=== PATIENT | male | born 1975 | race African-American/Black ===

== ENCOUNTER 2017-01-22 00:55 | Emergency (ER) | payer OTHER ==
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
[2017-01-22] MEDS ORDERED: DIPHTH,PERTUSS(ACELL),TET 0.5 ML DISP.SYRIN IM ONE (01:01)
[2017-01-22 01:02] VITALS: BP 124/90; PULSE 89; TEMP 98.8; BMI 40.1
== END 2017-01-22 01:31 | disposition home or self-care (01) ==
LOC: FER 00:55
PROC: 3E0234Z Introduction of Serum, Toxoid and Vaccine into Muscle, Percutaneous Approach (ICD-10-PCS; principal; 2017-01-22)
DX: S61.411A Laceration without foreign body of right hand, initial encounter (principal); S60.221A Contusion of right hand, initial encounter; W22.8XXA Striking against or struck by other objects, initial encounter; Y93.89 Activity, other specified; Y92.159 Unspecified place in reform school as the place of occurrence of the external cause; Y99.0 Civilian activity done for income or pay
CPT/HCPCS: 73130-TC-RT; 90715; 99281-25

== ENCOUNTER 2017-06-30 02:27 | Emergency (ER) | payer OTHER ==
[2017-06-30 02:43] VITALS: BP 145/74; PULSE 86; TEMP 98.9; BMI 41.3
[2017-06-30] MEDS ORDERED: AMOX TR/POT CLAV 875MG/125MG TABLETS (FP) PO ONE (02:53)
[2017-06-30] MEDS ORDERED: IBUPROFEN 600 MG TABLET (FP) PO ONE ×2 (02:54→02:59)
--- NOTE | 2017-06-30 02:58 | PDOC ---
History of Present Illness - General Chief Complaint: Abscess Boil Stated Complaint: CYST/SWELLING ON BACK Time Seen by Provider: 06/30/17 02:41 - History of Present Illness Initial Comments: This otherwise healthy 42-year-old man presents with several day history of progressive mild swelling and discomfort at the base of his spine. Patient denies fever/chills or drainage from the area. The patient has a history of skin abscess in the area. The patient states that this occurred several years ago and the area was not lanced. He was given course of antibiotics and swelling/pain resolved after this. He has one previous episode of right axillary cyst removal followed by skin graft that occurred when he was 16 years old (in [place]). No history of MRSA or other resistant organism colonization or infection. Past History - Past Medical History Allergies/Adverse Reactions: Allergies Allergy/AdvReac Type Severity Reaction Status Date / Time No Known Allergies Allergy Verified 01/22/17 00:56 Home Medications: Ambulatory Orders Amox-Tr/K Cl [Augmentin - 875Mg Tablet] 1 tab PO BID #14 tablet 06/30/17 COPD: No Other medical history: "LOTS OF HISTORY" - Immunization History Immunization Up to Date: No - Suicide/Smoking/Psychosocial Hx Smoking History: Never smoked Have you smoked in the past 12 months: No Hx Alcohol Use: No Drug/Substance Use Hx: No Substance Use Type: None Review of Systems - Review of Systems Able to Perform ROS?: Yes Comments:: 12 point review of systems is negative except for what is noted in the history of present illness *Physical Exam - Vital Signs Last Vital Signs Temp Pulse Resp BP Pulse Ox 98.9 F 86 16 145/74 97 06/30/17 02:29 06/30/17 02:29 06/30/17 02:29 06/30/17 02:32 06/30/17 02:29 - Physical Exam Comments: GENERAL: Adult male, alert and oriented 3, in no acute distress ABDOMEN:.normal bowel sounds No guarding,tenderness or rebound.No masses No distention. EXTREMITIES: Normal range of motion, no edema. No clubbing or cyanosis. No erythema, or tenderness. NEUROLOGICAL: Cranial nerves II through XII grossly intact. Normal speech. No focal neurological deficits. MUSCULOSKELETAL: Back non-tender to palpation, no CVA tenderness SKIN: 4 cm x 2 cm slightly edematous, mildly indurated, minimally tender area midline base of spine Area is faintly erythematous and minimally warmer to touch than surrounding area No central punctum identified; no fluctuance palpated. No drainage evident Medical Decision Making - Medical Decision Making This 42-year-old man presents with a several day history of mildly inflamed , minimally tender but moderately painful area at midline base of spine . Clinical presentation most consistent with early cellulitis; no palpable fluctuant abscess present. Patient has been instructed to apply warm soaks to the area as much as possible over the next several days. He has no risk factors for MRSA and will be given Augmentin 875/125 twice a day for a week. Follow-up appointment for reevaluation should be made with Dr. Vinh Myrick of the Gen. surgery staff. Referral information will be given to the patient *DC/Admit/Observation/Transfer Diagnosis at time of Disposition: Pilonidal abscess - Discharge Dispostion Disposition: HOME Condition at time of disposition: Stable - Prescriptions Prescriptions: Amox-Tr/K Cl [Augmentin - 875Mg Tablet] 1 tab PO BID #14 tablet - Referrals Referrals: Franco Silva [Primary Care Provider] - Vinh Myrick MD [Staff Physician] - - Patient Instructions Printed Discharge Instructions: Pilonidal Cyst Additional Instructions: Frequent warm applications to area of pain Augmentin 875/125 twice a day for one week -take with food Ibuprofen/acetaminophen as needed for pain Follow-up with general surgeon (Dr. Myrick) within 5 days[call office on Sunday, 07/02] Return to ER if you have severe pain/fever - Post Discharge Activity
[2017-06-30] MEDS ORDERED: AMOX TR/POT CLAV 875MG/125MG TABLETS (FP) ONE (02:59)
== END 2017-06-30 03:03 | disposition home or self-care (01) ==
LOC: FER 02:27
DX: L02.91 Cutaneous abscess, unspecified (principal)
CPT/HCPCS: 99282-25

== ENCOUNTER 2017-08-23 21:25 | Emergency (ER) | payer OTHER ==
[2017-08-23 21:36] VITALS: BP 144/98; PULSE 96; TEMP 98.2; BMI 42.5
--- NOTE | 2017-08-23 21:37 | PDOC ---
History of Present Illness - General History Source: Patient Exam Limitations: No Limitations - History of Present Illness Initial Comments: 08/23/17 22:04 The patient is a 42 year old male who presents to the emergency department complaining of a rash on the upper chest and shoulder beginning 2 days ago. The patient reports using a new soap from his job. He reports the rash originated in the middle of his chest, but radiated to both shoulders yesterday. The patient describes having an irritated feeling from the rash. The patient denies any itchiness, but endorses a mild burning feeling. The patient reports 3 episodes of diarrhea since Sunday. The patient denies hematochezia. The patient denies chest pain, shortness of breath, headache, and dizziness. Denies fevers, chills, nausea, vomiting, and constipation. Denies recent travel. PAST MEDICAL HISTORY: Hidradenitis PAST SURGICAL HISTORY: Testicular torsion FAMILY HISTORY: no pertinent history SOCIAL HISTORY: Pt lives with family and is employed. MEDICATIONS: reviewed ALLERGIES: As per nursing notes General: No fevers or chills, no weakness, no weight loss HEENT: No change in vision. No sore throat,. No ear pain CardioVascular: No chest pain or shortness of breath Respiratory:No cough, or wheezing. Gastrointestinal: no nausea, vomiting, diarrhea or constipation, No rectal bleeding Genitourinary: No dysuria, hematuria, or frequency Musculoskeletal: No joint or muscle pain or swelling Neurologic: No headache, vertigo, dizziness or loss of consciousness Psychiatric: nor depression Skin: +Rashes. No easy bruising Endocrine: no increased thirst or abnormal weight change Allergic: no skin or latex allergy All other systems reviewed and normal GENERAL: The patient is awake, alert, and fully oriented, in no acute distress. HEAD: Normal with no signs of trauma. EYES: Pupils equal, round and reactive to light, extraocular movements intact, sclera anicteric, conjunctiva clear. EXTREMITIES: Normal range of motion, no edema. NEUROLOGICAL: Normal speech, normal gait. PSYCH: Normal mood, normal affect. SKIN: +Multiple papules of upper chest and anterior shoulders. +Papules have waxy pearlescent center. +No increase in warmth, surrounding Erythema. +No tenderness or purulent discharge. Warm, Dry, normal turgor, no rashes or lesions noted. <Boogie Geiger - Last Filed: 08/23/17 22:04> - General History Source: Patient Exam Limitations: No Limitations - History of Present Illness Initial Comments: A portion of this note was documented by scribe services under my direction. I have reviewed the details of the note, within reason, and agree with the documentation. The case summary and management plan written by me. Assessment and plan: This is a 42-year-old male who comes in with a rash across his upper chest. Rashes papular nature with some of the papules having a waxy pearlescent type center. Rashes most consistent with molluscum contagiosum. Patient was reassured that is most likely that however he was also told to follow-up with a national sales. Patient was discharged home. 08/23/17 22:33 <Dimitrios Herrera I - Last Filed: 08/23/17 22:34> - General Chief Complaint: Rash Stated Complaint: RASH Time Seen by Provider: 08/23/17 21:37 Past History <Boogie Geiger - Last Filed: 08/23/17 22:04> - Past Medical History COPD: No - Immunization History Immunization Up to Date: No - Suicide/Smoking/Psychosocial Hx Smoking History: Never smoked Have you smoked in the past 12 months: No Hx Alcohol Use: No Drug/Substance Use Hx: No Substance Use Type: None <Dimitrios Herrera I - Last Filed: 08/23/17 22:34> - Past Medical History Allergies/Adverse Reactions: Allergies Allergy/AdvReac Type Severity Reaction Status Date / Time No Known Allergies Allergy Verified 01/22/17 00:56 Home Medications: Ambulatory Orders NK [No Known Home Medication] 08/23/17 *Physical Exam - Vital Signs Last Vital Signs Temp Pulse Resp BP Pulse Ox 98.2 F 96 H 16 144/98 96 08/23/17 21:31 08/23/17 21:31 08/23/17 21:31 08/23/17 21:31 08/23/17 21:31 <Boogie Geiger - Last Filed: 08/23/17 22:04> - Vital Signs Last Vital Signs Temp Pulse Resp BP Pulse Ox 98.2 F 96 H 16 144/98 96 08/23/17 21:31 08/23/17 21:31 08/23/17 21:31 08/23/17 21:31 08/23/17 21:31 <Dimitrios Herrera I - Last Filed: 08/23/17 22:34> *DC/Admit/Observation/Transfer - Attestations Scribe Attestion: 08/23/17 22:05 Documentation prepared by Boogie Geiger, acting as medical records analyst for Dimitrios Herrera MD. <Boogie Geiger - Last Filed: 08/23/17 22:04> - Discharge Dispostion Admit: No <Dimitrios Herrera I - Last Filed: 08/23/17 22:34> Diagnosis at time of Disposition: Molluscum contagiosum - Discharge Dispostion Disposition: HOME Condition at time of disposition: Good - Referrals Referrals: Franco Silva [Primary Care Provider] - - Patient Instructions Additional Instructions: Avoid skin to skin contact with other people as it can be transmitted by skin to skin contact. It is a virus and will run its course and may last for several months though. Return to the emergency department immediately with ANY new, persistent or worsening symptoms. Continue any medications as previously prescribed by your physician. You should follow up with your primary doctor as soon as possible regarding today's emergency department visit. . Please make sure your doctor reviews the results of your emergency evaluation. Thank you for coming to the Emergency Department today for your care. It was a pleasure to see you today. Please note that your evaluation is INCOMPLETE until you follow-up with your doctor. - Post Discharge Activity
== END 2017-08-23 22:00 | disposition home or self-care (01) ==
LOC: FER 21:25
DX: B08.1 Molluscum contagiosum (principal)
CPT/HCPCS: 99281-25

== ENCOUNTER 2018-05-05 21:58 | Emergency (ER) | payer SELFPAY ==
[2018-05-05 22:20] VITALS: BP 145/97; PULSE 90; TEMP 98.1; BMI 43.8
[2018-05-05 22:59] LABS: BASO % 1.4 % (0-2.0); EOS % 2.1 % (0-4.5); HEMATOCRIT 45.7 % (35.4-49); HEMOGLOBIN 14.6 GM/dl (11.7-16.9); LYMPH % 46.1 % (8-40); MCH 27.8 pg (25.7-33.7); MCHC 31.9 g/dl (32.0-35.9); MEAN CELL VOLUME 87.2 fl (80-96); MEAN PLT VOLUME 8.2 fl (7.5-11.1); MONO % 8.5 % (3.8-10.2); NEUT % 41.9 % (42.8-82.8); PLATELET COUNT 282 K/MM3 (134-434); RBC 5.24 M/mm3 (4.00-5.60); RDW 14.4 % (11.9-15.9); WHITE BLOOD COUNT 4.8 K/mm3 (4.0-10.8)
--- NOTE | 2018-05-05 23:00 | PDOC ---
History of Present Illness - General Chief Complaint: Chest Pain Stated Complaint: CHEST PAIN Time Seen by Provider: 05/05/18 21:59 History Source: Patient Exam Limitations: No Limitations - History of Present Illness Initial Comments: 05/05/18 23:04 chest pain since early today. Started as a tingle in the left hand and then pain in the left shoulder. Pt sammy obese and he wants to make sure it's not cardiac, though nobody in his family has a hx of [place] or DM. Pt has no hx of HTN, DM, High cholesterol. Timing/Duration: 24 hours Severity: mild Associated Symptoms: reports: denies symptoms Past History - Travel Traveled outside of the country in the last 30 days: No Close contact w/someone who was outside of country & ill: No - Past Medical History Allergies/Adverse Reactions: Allergies Allergy/AdvReac Type Severity Reaction Status Date / Time No Known Allergies Allergy Verified 01/02/18 18:45 Home Medications: Ambulatory Orders NK [No Known Home Medication] 08/23/17 COPD: No DVT: No - Immunization History Immunization Up to Date: No - Suicide/Smoking/Psychosocial Hx Smoking History: Never smoked Have you smoked in the past 12 months: No Hx Alcohol Use: No Drug/Substance Use Hx: No Substance Use Type: None Review of Systems - Review of Systems Constitutional: No: Symptoms Reported, See HPI, Chills, Diaphoresis, Fever, Loss of Appetite, Malaise, Night Sweats, Weakness, Weight Stable, Unintentional Wgt. Loss, Unexplained wgt Loss, Other HEENTM: No: Symptoms Reported, See HPI, Eye Pain, Blurred Vision, Tearing, Recent change in vision, Double Vision, Cataracts, Ear Pain, Ocular Prothesis, Ear Discharge, Nose Pain, Nose Congestion, Tinnitus, Nose Bleeding, Hearing Loss , Throat Pain, Throat Swelling, Mouth Pain, Dental Problems, Difficulty Swallowing, Mouth Swelling, Other Respiratory: No: Symptoms reported, See HPI, Cough, Orthopnea, Shortness of Breath, SOB with Exertion, SOB at Rest, Stridor, Wheezing, Productive cough, Hemoptysis, Other Cardiac (ROS): No: Symptoms Reported, See HPI, Chest Pain, Edema, Irregular Heart Rate, Lightheadedness, Palpitations, Syncope, Chest Tightness, Other ABD/GI: No: Symptoms Reported, See HPI, Abdominal Distended, Abd. Pain w/ defecation, Blood Streaked Bowels, Constipated, Diarrhea, Difficulty Swallowing , Nausea, Poor Appetite, Poor Fluid Intake, Rectal Bleeding, Vomiting, Indigestion, Abdominal cramping, Tarry Stools, Other : No: Symptoms Reported, See HPI, Burning, Dysuria, Discharge, Frequency, Flank Pain, Hematuria, Incontinence, Pain, Urgency, Testicular Mass, Testicular Swelling, Lesions, Testicular Pain, Other Musculoskeletal: No: Symptoms Reported, See HPI, Back Pain, Gout, Joint Pain, Joint Swelling, Muscle Pain, Muscle Weakness, Neck Pain, Joint Stiffness, Other Integumentary: No: Symptoms Reported, See HPI, Bruising, Change in Color, Change in Hair/Nails, Dryness, Erythema, Flushing, Lesions, Lumps, Pallor, Pruritus, Rash, Sweating, Other Neurological: No: Symptoms reported, See HPI, Headache, Numbness, Paresthesia, Pre-Existing Deficit, Seizure, Tingling, Tremors, Weakness, Unsteady Gait, Ataxia, Dizziness, Other *Physical Exam - Vital Signs Last Vital Signs Temp Pulse Resp BP Pulse Ox 98.1 F 90 18 145/97 96 05/05/18 22:01 05/05/18 22:01 05/05/18 22:01 05/05/18 22:01 05/05/18 22:01 - Physical Exam General Appearance: Yes: Nourished, Appropriately Dressed, Obese. No: Apparent Distress HEENT: positive: EOMI, SHARYN, Normal ENT Inspection, Normal Voice, Symmetrical, TMs Normal, Pharynx Normal Neck: positive: Trachea midline, Supple Respiratory/Chest: positive: Lungs Clear, Normal Breath Sounds. negative: Chest Tender, Respiratory Distress, Accessory Muscle Use Cardiovascular: positive: Regular Rhythm, Regular Rate, S1, S2 Gastrointestinal/Abdominal: positive: Normal Bowel Sounds, Soft. negative: Tender Musculoskeletal: positive: Normal Inspection, CVA Tenderness. negative: CVA Tenderness (R), CVA Tenderness (L), Muscle Spasm, Vertebral Tenderness Extremity: positive: Normal Capillary Refill, Normal Inspection, Normal Range of Motion, Tender, Pelvis Stable Integumentary: positive: Normal Color, Dry, Warm Neurologic: positive: behavioral specialist II-XII NML intact, Fully Oriented, Alert, Normal Mood/ Affect, Normal Response, Motor Strength 5/5 Moderate Sedation - Procedure Monitoring Vital Signs: Procedure Monitoring Vital Signs Temperature 98.1 F 05/05/18 22:01 Pulse Rate 90 05/05/18 22:01 Respiratory Rate 18 05/05/18 22:01 Blood Pressure 145/97 05/05/18 22:01 O2 Sat by Pulse Oximetry (%) 96 05/05/18 22:01 Heart Score/ECG Review - ECG Intrepretation Rhythm: Regular Rhythm - [place]: Normal - ST and T Early Repolarization: No Non Specific ST-T Wave changes: No - ECG Impressions Normal ECG: Yes Non-specific ST Elevation: No Ischemic Changes: No Bradycardia: No (rate normal 84 bpm) ED Treatment Course - LABORATORY CBC & Chemistry Diagram: 05/05/18 22:40 05/05/18 22:40 - ADDITIONAL ORDERS Additional order review: Laboratory Results 05/05/18 22:40 Troponin I Cancelled - RADIOLOGY Radiology Studies Ordered: Category Date Time Status CHEST PA & LAT [RAD] Stat Radiology 05/05/18 21:59 Taken Medical Decision Making - Medical Decision Making 05/05/18 23:15 CBC is normal. CXR normal EKG NSR 05/05/18 23:24 Pt's CPK is elevated, but that is likely due to his body mabitus, and the fact that for the past 3 weeks he joined a gym ([employer]) and he has been exercising. I am waiting on CPK and CKMB and troponin *DC/Admit/Observation/Transfer Diagnosis at time of Disposition: Atypical chest pain - Discharge Dispostion Disposition: HOME Condition at time of disposition: Stable Decision to Admit order: No - Referrals Referrals: Franco Silva [Primary Care Provider] - - Patient Instructions Printed Discharge Instructions: Vegan Diet (Alternative Therapy), DI for Atypical Chest Pain - Post Discharge Activity
[2018-05-05 23:15] LABS: ALBUMIN 3.6 g/dl (3.5-5.0); ALK PHOS 63 U/L (32-92); ANION GAP 8 MMOL/L (8-16); BILIRUBIN,TOTAL 0.4 mg/dl (0.2-1.0); BLOOD UREA NITROGEN 22 mg/dl (7-18); CHLORIDE 107 mmol/L (98-107); CO2 21 mmol/L (22-28); CREATININE 1.1 mg/dl (0.6-1.3); GLUCOSE,RANDOM 115 mg/dl (74-106); POTASSIUM 3.9 mmol/L (3.5-5.1); SGOT/AST 38 U/L (10-42); SGPT/ALT 44 U/L (10-40); SODIUM 136 mmol/L (136-145); TOT PROT 7.5 g/dl (6.4-8.3)
--- NOTE | 2018-05-06 09:58 | EKG ---
Test Reason : Blood Pressure : / mmHG Vent. Rate : 084 BPM Atrial Rate : 084 BPM P-R Int : 186 ms QRS Dur : 090 ms QT Int : 338 ms P-R-T Axes : 047 -07 010 degrees QTc Int : 399 ms NORMAL SINUS RHYTHM MINIMAL VOLTAGE CRITERIA FOR LVH, MAY BE NORMAL VARIANT BORDERLINE ECG NO PREVIOUS ECGS AVAILABLE Confirmed by ARLETTE RENNER MD ([id number]) on 05/06/2018 9:57:38 AM Referred By: Confirmed By:ARLETTE RENNER MD
== END 2018-05-06 00:15 | disposition home or self-care (01) ==
LOC: FER 21:58
DX: R07.89 Other chest pain (principal); I25.2 Old myocardial infarction; E11.9 Type 2 diabetes mellitus without complications
CPT/HCPCS: 36415; 71046-TC-FY; 80053; 82550; 82553; 84484; 85025; 93005; 99281-25

== ENCOUNTER 2019-03-18 04:26 | Emergency (ER) | payer SELFPAY ==
[2019-03-18 04:35] VITALS: BP 151/102; PULSE 67; BMI 42.0
[2019-03-18] MEDS ORDERED: TETRACAINE 0.5% OPHTH SOLN 2 ML BOTTLE ONE (04:38)
[2019-03-18] MEDS ORDERED: FLUORESCEIN NA 1 EA STRIP ONE (04:38)
[2019-03-18] MEDS ORDERED: TOBRA 0.3%/DEXAMETH 0.1% OPHTHALMIC SUSP 2.5 ML BTL ONE (04:40)
--- NOTE | 2019-03-18 04:43 | PDOC ---
History of Present Illness - General Chief Complaint: Pain, Acute Stated Complaint: PAIN AND IRRITATION TO LEFT EYE Time Seen by Provider: 03/18/19 04:37 History Source: Patient Exam Limitations: No Limitations - History of Present Illness Initial Comments: 03/18/19 04:45 This is a 43-year-old male who comes in complaining of a sensation of irritation in his left eye since yesterday morning. Patient said there is been some discharge from the eye but no pus from the eye. Patient otherwise denies any trauma or injury. Patient denies having gotten anything in the eye. Allergies: as per nursing notes Past Medical History: none Social history: Lives with family. No smoking. No alcohol. No illicit drugs. Surgical history: None General: No fevers or chills, no weakness, no weight loss HEENT: No change in vision. No sore throat,. No ear pain CardioVascular: no chest discomfort. No shortness of breath Respiratory:No cough, or wheezing. Gastrointestinal: no nausea, vomiting, diarrhea or constipation, No rectal bleeding Genitourinary: No dysuria, hematuria, or frequency Musculoskeletal: No joint or muscle pain or swelling Neurologic: No headache, vertigo, dizziness or loss of consciousness Psychiatric: nor depression Skin: No rashes or easy bruising Endocrine: no increased thirst or abnormal weight change Allergic: no skin or latex allergy All other systems reviewed and normal GENERAL: The patient is awake, alert, and fully oriented, in no acute distress. HEAD: Normal with no signs of trauma. EYES: Pupils equal, round and reactive to light, extraocular movements intact, sclera anicteric, conjunctiva injected with some clear discharge from the eye. EXTREMITIES:atraumatic, Normal range of motion, no edema. NEUROLOGICAL: Normal speech, normal gait. PSYCH: Normal mood, normal affect. SKIN: Warm, Dry, normal turgor, no rashes or lesions noted. 03/18/19 04:47 Assessment and plan: This is a 43-year-old male with conjunctivitis. Patient started on TobraDex and discharged. Past History - Past Medical History Allergies/Adverse Reactions: Allergies Allergy/AdvReac Type Severity Reaction Status Date / Time No Known Allergies Allergy Verified 03/18/19 04:31 Home Medications: Ambulatory Orders NK [No Known Home Medication] 08/23/17 COPD: No DVT: No - Immunization History Td Vaccination: Yes Immunization Up to Date: No - Psycho Social/Smoking Cessation Hx Smoking History: Never smoked Have you smoked in the past 12 months: No Information on smoking cessation initiated: No Hx Alcohol Use: No Drug/Substance Use Hx: No Substance Use Type: None *Physical Exam - Vital Signs Last Vital Signs Temp Pulse Resp BP Pulse Ox 67 16 151/102 H 98 03/18/19 04:32 03/18/19 04:32 03/18/19 04:32 03/18/19 04:32 Discharge - Discharge Information Problems reviewed: Yes Clinical Impression/Diagnosis: Conjunctivitis Qualifiers: Conjunctivitis type: unspecified Laterality: left Qualified Code(s): H10.9 - Unspecified conjunctivitis Condition: Stable Disposition: HOME - Admission No - Follow up/Referral - Patient Discharge Instructions Additional Instructions: Put 1 drop of the eye ointment in your left eye every 4 hours while awake for the next 4 to 5 days. 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 Continue any medications as previously prescribed by your physician. You should follow up with your primary doctor as soon as possible regarding today's emergency department visit. . Please make sure your doctor reviews the results of your emergency evaluation. Thank you for coming to the Emergency Department today for your care. It was a pleasure to see you today. Please note that your evaluation is INCOMPLETE until you follow-up with your doctor. . - Post Discharge Activity
[2019-03-18] MEDS ORDERED: TOBRA 0.3%/DEXAMETH 0.1% OPHTHALMIC SUSP 2.5 ML BTL OS STA (04:46)
[2019-03-18] MEDS ORDERED: TOBRA 0.3%/DEXAMETH 0.1% OPHTHALMIC SUSP 2.5 ML BTL OU SCH (06:00)
== END 2019-03-18 04:50 | disposition home or self-care (01) ==
LOC: FER 04:26
DX: H10.9 Unspecified conjunctivitis (principal)
CPT/HCPCS: 99281-25

== ENCOUNTER 2020-02-22 02:15 | Emergency (ER) | payer OTHER ==
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
[2020-02-22 02:22] VITALS: BP 127/87; PULSE 87; TEMP 98.7; BMI 42.1
--- OUTSIDE RECORDS SUMMARY | 2020-02-22 02:30 | XMS ---
:1975 Author Organization [facility] Support Name Relationship Address Phone CHILD Unavailable [facility] [phone] [place] [address] ZAY PAL MOTHER [address] [place] [address] Re-disclosure Warning The records that you are about to access may contain information from federally- assisted alcohol or drug abuse programs. If such information is present, then the following federally mandated warning applies: This information has been disclosed to you from records protected by federal confidentiality rules (42 CFR part 2). The federal rules prohibit you from making any further disclosure of this information unless further disclosure is expressly permitted by the written consent of the person to whom it pertains or as otherwise permitted by 42 CFR part 2. A general authorization for the release of medical or other information is NOT sufficient for this purpose. The Federal rules restrict any use of the information to criminally investigate or prosecute any alcohol or drug abuse patient.The records that you are about to access may contain highly sensitive health information, the redisclosure of which is protected by Article 27-F of the [facility] Public Health law. If you continue you may haveaccess to information: Regarding HIV / AIDS; Provided by facilities licensed or operated by the [facility] Office of Mental Health; or Provided by the [facility] Office for People With Developmental Disabilities. If such information is present, then the following [facility] mandated warning applies: This information has been disclosed to you from confidential records which are protected by state law. State law prohibits you from making any further disclosure of this information without the specific written consent of the person to whom it pertains, or as otherwise permitted by law. Any unauthorized further disclosure in violation of state law may result in a fine or skilled nursing sentence or both. A general authorization for the release of medical or other information is NOT sufficient authorization for further disclosure. Insurance Providers Payer name Policy type Policy ID Covered Covered libertarian's Policy P dariana / Coverage libertarian ID relationship to [facility] [facility] orm[facility] type [place] SELF PAY SP INSURANCE PMA INSURANCE [id number] SP [id number] GROUP PMA INSURANCE [id number] SP [id number] GROUP Results ID Date Data Source [id number] 02/14/2020 08:47:00 AM EDT [facility] FASTING: UNKNOWNReceived: 02/06/2020 at 01:38:00 QTE: [facility], Moris Acosta Ricarad [place], [address]Zafar MD Received: 02/06/2020 at 01:38:00 QTE : [facility], [place], [address]Zafar MD Received: 02/06/2020 at 01:38:00 QTE : [facility], [address]Zafar MD Received: 02/06/2020 at 01:38:00 QTE : [facility], Moris Meridabraden Garcias [facility] [place], [address]Zafar MD Received: 02/06/2020 at 01:38:00 QTE : [facility], [place], [address]Zafar MD Received: 02/06/2020 at 01:38:00 QTE : [facility] Moris Acosta Ricarda [facility] [place], [address]Zafar MD Received: 02/06/2020 at 01:38:00 QTE : [facility] Moris MeridaKatey Martínezbor[place], [address]Zafar MD Received: 02/06/2020 at 01:38:00 AMD : [facility], [address], [place], [address], Juan Miguel Kebede M.D.,PhD Received: 02/06/2020 at 01:38:00 AMD : [facility], [address], [place], [address], Juan Miguel Kebede M.D.,PhD Received: 02/06/2020 at 01:38:00 QTE : [facility], [address], [place], [address], Zafar Sanchez MD Received: 02/06/2020 at 01:38:00 QTE : [facility], [address], [place], [address], Zafar Sanchez MD Received: 02/06/2020 at 01:38:00 QTE : [facility], [address], [place], [address], Zafar Sanchez MD Received: 02/06/2020 at 01:38:00 QTE : [facility], [address], [place], [address], Zafar Sanchez MD Name Value Range Interpretation Code Description Data Kayli rce(s) Supporting Document(s ) ID Date Data Source [id number] 02/14/2020 08:47:00 AM EDT [facility] FASTING: UNKNOWNReceived: 02/06/2020 at 01:38:00 QTE: [facility], Moris Hardingcolm Nikitae, [place], [address], Zafar Sanchez MD Received: 02/06/2020 at 01:38:00 QTE : [facility], [address], [place], [address], Zafar Sanchez MD Received: 02/06/2020 at 01:38:00 QTE : [facility], [address], [place], [address], Zafar Sanchez MD Received: 02/06/2020 at 01:38:00 QTE : [facility], [address], [place], [address], Zafar Sanchez MD Received: 02/06/2020 at 01:38:00 QTE : [facility], Moris Garcias, [place], [address], Zafar Sanchez MD Received: 02/06/2020 at 01:38:00 QTE : [facility], Moris Garcias, [place], [address], Zafar Sanchez MD Received: 02/06/2020 at 01:38:00 QTE : [facility], Moris Garcias, [place], [address], Zafar Sanchez MD Received: 02/06/2020 at 01:38:00 AMD : [facility], [address] [facility], [place], [place], , Juan Miguel Kebede M.D.,PhD Received: 02/06/2020 at 01:38:00 AMD : [facility], [address] [facility], [place], , Juan Miguel Kebede M.D.,PhD Received: 02/06/2020 at 01:38:00 QTE : [facility], Moris Garcias, [place], [address], Zafar Sanchez MD Received: 02/06/2020 at 01:38:00 QTE : [facility], [place], [address], Zafar Sanchez MD Received: 02/06/2020 at 01:38:00 QTE : [facility], [place], [address], Zafar Sanchez MD Received: 02/06/2020 at 01:38:00 QTE : [facility], [place], [address], Zafar Sanchez MD Name Value Range Interpretation Description Data Source(s ) Supporting Code Document(s ) Cholesterol 226 <200 Above high normal [facility] [Mass/volume] mg/dL Diagnostics in Serum or Plasma ID Date Data Source [id number] 02/14/2020 08:47:00 AM EDT [facility] FASTING: UNKNOWNReceived: 02/06/2020 at 01:38:00 QTE: [facility], Moris Garcias, [place], [address], Zafar Sanchez MD Received: 02/06/2020 at 01:38:00 QTE : [facility], Moris Garcias, [place], [address], Zafar Sanchez MD Received: 02/06/2020 at 01:38:00 QTE : [facility], Moris Garcias, [place], [address], Zafar Sanchez MD Received: 02/06/2020 at 01:38:00 QTE : [facility], Moris Garcias, [place], [address], Zafar Sanchez MD Received: 02/06/2020 at 01:38:00 QTE : [facility], Moris Garcias, [place], [address], Zafar Sanchez MD Received: 02/06/2020 at 01:38:00 QTE : [facility], Moris Garcias, [place], [address], Zafar Sanchez MD Received: 02/06/2020 at 01:38:00 QTE : [facility], Moris Garcias, [place], [address], Zafar Sanchez MD Received: 02/06/2020 at 01:38:00 AMD : [facility], [address], [place], [place], , Juan Miguel Kebede M.D.,PhD Received: 02/06/2020 at 01:38:00 AMD : [facility], [address], [place], [place], , Juan Miguel Kebede M.D.,PhD Received: 02/06/2020 at 01:38:00 QTE : [facility], Moris Meridabraden Garcias, [place], [address], Zafra Sanchez MD Received: 02/06/2020 at 01:38:00 QTE : [facility], Moris Acosta Ricarda, [place], [address], Zafar Sanchez MD Received: 02/06/2020 at 01:38:00 QTE : [facility], Moris Meridabraden Garcias, [place], [address], Zafar Sanchez MD Received: 02/06/2020 at 01:38:00 QTE : [facility], [place], [address], Zafar Sanchez MD Name Value Range Interpretation Description Data Sup porting Code Source(s) Document(s ) Cholesterol in 62 mg/dL > OR = Normal (applies [facility] HDL 40 to non-numeric Diagnostics [Mass/volume] results) in Serum or Plasma ID Date Data Source [id number] 02/14/2020 08:47:00 AM EDT [facility] FASTING: UNKNOWNReceived: 02/06/2020 at 01:38:00 QTE: [facility], [place], [address], Zafar Sanchez MD Received: 02/06/2020 at 01:38:00 QTE : [facility], [address], Zafar Sanchez MD Received: 02/06/2020 at 01:38:00 QTE : [facility], [place], [address], Zafar Sanchez MD Received: 02/06/2020 at 01:38:00 QTE : [facility], [address], Zafar Sanchez MD Received: 02/06/2020 at 01:38:00 QTE : [facility], [address], Zafar Sanchez MD Received: 02/06/2020 at 01:38:00 QTE : [facility], [place], [address], Zafar Sanchez MD Received: 02/06/2020 at 01:38:00 QTE : [facility], Moris Garcias, [place], [address], Zafar Sanchez MD Received: 02/06/2020 at 01:38:00 AMD : [facility], [address] [facility], [place], [place], , Juan Miguel Kebede M.D.,PhD Received: 02/06/2020 at 01:38:00 AMD : [facility], [address] [facility], [place], , Juan Miguel Kebede M.D.,PhD Received: 02/06/2020 at 01:38:00 QTE : [facility], [place], [address], Zafar Sanchez MD Received: 02/06/2020 at 01:38:00 QTE : [facility], [place], [address]Zafar MD Received: 02/06/2020 at 01:38:00 QTE : [facility], [place], [address], Zafar Sanchez MD Received: 02/06/2020 at 01:38:00 QTE : [facility], [address], Zafar Sanchez MD Name Value Range Interpretation Description Data Source(s ) Supporting Code Document(s ) Triglyceride 58 mg/dL <150 Normal (applies [facility] [Mass/volume] to non-numeric Diagnostics in Serum or results) Plasma ID Date Data Source [id number] 02/14/2020 08:47:00 AM EDT [facility] FASTING: UNKNOWNReceived: 02/06/2020 at 01:38:00 QTE: [facility], [address], [place], [address], Zafar Sanchez MD Received: 02/06/2020 at 01:38:00 QTE : [facility], [address], [place], [address], Zafar Sanchez MD Received: 02/06/2020 at 01:38:00 QTE : [facility], [address], [place], [address], Zafar Sanchez MD Received: 02/06/2020 at 01:38:00 QTE : [facility], [address], [place], [address], Zafar Sanchez MD Received: 02/06/2020 at 01:38:00 QTE : [facility], [address], [place], [address], Zafar Sanchez MD Received: 02/06/2020 at 01:38:00 QTE : [facility], [address], [place], [address], Zafar Sanchez MD Received: 02/06/2020 at 01:38:00 QTE : [facility], [address], [place], [address], Zafar Sanchez MD Received: 02/06/2020 at 01:38:00 AMD : [facility], [address] [facility] [address] , [place], [place], , Juan Miguel Kebede M.D.,PhD Received: 02/06/2020 at 01:38:00 AMD : [facility], [address] [facility] [address], [place], [place], , Juan Miguel Kebede M.D.,PhD Received: 02/06/2020 at 01:38:00 QTE : [facility], [address], [place], [address]Zafar MD Received: 02/06/2020 at 01:38:00 QTE : [facility] [place], [address]Zafar MD Received: 02/06/2020 at 01:38:00 QTE : [facility] [place], [address]Zafar MD Received: 02/06/2020 at 01:38:00 QTE : [facility] [place], [address]Zafar MD Name Value Range Interpretation Description Data Source(s ) Supporting Code Document(s ) Cholesterol in 149 Above high normal [facility] LDL mg/dL Diagnostics [Mass/volume] (calc) in Serum or Plasma by calculation Reference range: <100Desirable range <10 0 mg/dL for primary prevention;<70 mg/dL for patients with CHD or diabetic patientswi th > or = 2 CHD risk factors.LDL-C is now calculated using the Jay lation, which is a validated novel method providingbetter accuracy than the Friede christin equation in theestimation of LDL-C.Donny SS et al. KAVITA. 2013;310(19 ): 8415-0319(http://education.No Surprises SoftwareDiagnost [employer].com/faq/RNE975) ID Date Data Source [id number] 02/14/2020 08:47:00 AM EDT [facility] FASTING: UNKNOWNReceived: 02/06/2020 at 01:38:00 QTE: [facility] [place], [address]Zafar MD Received: 02/06/2020 at 01:38:00 QTE : [facility] [place], [address]Zafar MD Received: 02/06/2020 at 01:38:00 QTE : [facility] [place], [address]Zafar MD Received: 02/06/2020 at 01:38:00 QTE : [facility], [address], [place], [address], Zafar Sanchez MD Received: 02/06/2020 at 01:38:00 QTE : [facility], [address], [place], [address], Zafar Sanchez MD Received: 02/06/2020 at 01:38:00 QTE : [facility], [address], [place], [address], Zafar Sanchez MD Received: 02/06/2020 at 01:38:00 QTE : [facility], [address], [place], [address], Zafar Sanchez MD Received: 02/06/2020 at 01:38:00 AMD : [facility], [address], [place], [place], , Juan Miguel Kebede M.D.,PhD Received: 02/06/2020 at 01:38:00 AMD : [facility], [address], [place], [place], , Juan Miguel Kebede M.D.,PhD Received: 02/06/2020 at 01:38:00 QTE : [facility], [address], [place], [address], Zafar Sanchez MD Received: 02/06/2020 at 01:38:00 QTE : [facility], [address], [place], [address], Zafar Sanchez MD Received: 02/06/2020 at 01:38:00 QTE : [facility], [address], [place], [address], Zafar Sanchez MD Received: 02/06/2020 at 01:38:00 QTE : [facility], [address], [place], [address]Zafar MD Name Value Range Interpretation Description Data Source(s ) Supporting Code Document(s ) Cholestero 3.6 <5.0 Normal (applies to [facility] l.total/Ch (calc) non-numeric Diagnostics olesterol results) in HDL [Mass Ratio] in Serum or Plasma ID Date Data Source [id number] 02/14/2020 08:47:00 AM EDT [facility] FASTING: UNKNOWNReceived: 02/06/2020 at 01:38:00 QTE: [facility], [place], [address], Zafar Sancehz MD Received: 02/06/2020 at 01:38:00 QTE : [facility], [place], [address], Zafar Sanchez MD Received: 02/06/2020 at 01:38:00 QTE : [facility], [place], [address], Zafar Sanchez MD Received: 02/06/2020 at 01:38:00 QTE : [facility], [place], [address], Zafar Sanchez MD Received: 02/06/2020 at 01:38:00 QTE : [facility], [place], [address], Zafar Sanchez MD Received: 02/06/2020 at 01:38:00 QTE : [facility], Moris Garcias [place], [address]Zafar MD Received: 02/06/2020 at 01:38:00 QTE : [facility], [place], [address], Zafar Sanchez MD Received: 02/06/2020 at 01:38:00 AMD : [facility], [address], [place], [address], Juan Miguel Kebede M.D.,PhD Received: 02/06/2020 at 01:38:00 AMD : [facility], [address], [place], [address], Juan Miguel Kebede M.D.,PhD Received: 02/06/2020 at 01:38:00 QTE : [facility], [place], [address], Zafar Sanchez MD Received: 02/06/2020 at 01:38:00 QTE : [facility], [place], [address], Zafar Sanchez MD Received: 02/06/2020 at 01:38:00 QTE : [facility], [place], [address]Zafar MD Received: 02/06/2020 at 01:38:00 QTE : [facility], [place], [address], Zafar Sanchez MD Name Value Range Interpretation Description Data Source(s ) Supporting Code Document(s ) Cholesterol 164 <130 Above high normal [facility] non HDL mg/dL Diagnostics [Mass/volume] (calc) in Serum or Plasma For patients with diabetes plus 1 major ASCVD riskfactor, treating to a non-HDL-C goal of <100 mg/dL(LDL-C of <70 mg/dL) i s considered a therapeuticoption. ID Date Data Source [id number] 02/14/2020 08:47:00 AM EDT [facility] FASTING: UNKNOWNReceived: 02/06/2020 at 01:38:00 QTE: [facility], [place], [address]Zafar MD Received: 02/06/2020 at 01:38:00 QTE : [facility], [address]Zafar MD Received: 02/06/2020 at 01:38:00 QTE : [facility]ostics[facility] Vidal [place], [address], Zafar Sanchez MD Received: 02/06/2020 at 01:38:00 QTE : [facility], [address], [place], [address], Zafar Sanchez MD Received: 02/06/2020 at 01:38:00 QTE : [facility], [address], [place], [address], Zafar Sanchez MD Received: 02/06/2020 at 01:38:00 QTE : [facility], [address], [place], [address], Zafar Sanchez MD Received: 02/06/2020 at 01:38:00 QTE : [facility], Moris Garcias, [place], [address], Zafar Sanchez MD Received: 02/06/2020 at 01:38:00 AMD : [facility], [address] [facility], [place], [place], , Juan Miguel Kebede M.D.,PhD Received: 02/06/2020 at 01:38:00 AMD : [facility], [address] [facility], [place], [place], , Juan Miguel Kebede M.D.,PhD Received: 02/06/2020 at 01:38:00 QTE : [facility], [address]is Ac[address], [place], [address], Zafar Sanchez MD Received: 02/06/2020 at 01:38:00 QTE : [facility], [address] Nikit[address], [place], [address], Zafar Sanchez MD Received: 02/06/2020 at 01:38:00 QTE : [facility], [address], [place], [address], Zafar Sanchez MD Received: 02/06/2020 at 01:38:00 QTE : [facility], [facility] [address], [place], [address], Zafar Sanchez MD Name Value Range Interpretation Description Data Source(s ) Supporting Code Document(s ) Glucose 93 mg/dL 65-99 Normal (applies to [facility] [Mass/volum non-numeric Diagnostics e] in Serum results) or Plasma Fasting reference interval Urea nitrogen 13 mg/dL 7-25 Normal (applies [facility] [Mass/volume] in Serum to non-numeric Di agnostics or Plasma results) Creatinine 1.14 mg/dL 0.60-1.35 Normal (applies [facility] [Mass/volume] in Serum to non-numeric Di agnostics or Plasma results) Glomerular filtration 78 mL/min/1.73m2 > OR = 60 Normal (applies [facility] rate/1.73 sq to non-numeric Diagnostics M.predicted [Volume results) Rate/Area] in Serum, Plasma or Blood by Creatinine-based formula (MDRD) Glomerular filtration 91 mL/min/1.73m2 > OR = 60 Normal (applies [facility] rate/1.73 sq M to non-numeric Diagnostic s predicted among blacks results) [Volume Rate/Area] in Serum or Plasma by Creatinine-based formula (MDRD) Urea NOT APPLICABLE 6-22 [facility] nitrogen/Creatinine (calc) Diagnostic s [Mass Ratio] in Serum or Plasma Sodium [Moles/volume] 138 mmol/L 135-146 Normal (applies Q uest in Serum or Plasma to non-numeric Diagno stics results) Potassium 4.5 mmol/L 3.5-5.3 Normal (applies [facility] [Moles/volume] in to non-numeric Diagnos tics Serum or Plasma results) Chloride 106 mmol/L 98-110 Normal (applies [facility] [Moles/volume] in to non-numeric Diagnos tics Serum or Plasma results) Carbon dioxide, total 22 mmol/L 20-32 Normal (applies Qu est [Moles/volume] in to non-numeric Diagnos tics Serum or Plasma results) Calcium [Mass/volume] 9.5 mg/dL 8.6-10.3 Normal (applies Qu est in Serum or Plasma to non-numeric Diagno stics results) Protein [Mass/volume] 7.9 g/dL 6.1-8.1 Normal (applies Qu est in Serum or Plasma to non-numeric Diagno stics results) Albumin [Mass/volume] 4.2 g/dL 3.6-5.1 Normal (applies Qu est in Serum or Plasma to non-numeric Diagno stics results) Globulin [Mass/volume] 3.7 g/dL (calc) 1.9-3.7 Normal (applies [facility] in Serum by to non-numeric Diagnostics calculation results) Albumin/Globulin [Mass 1.1 (calc) 1.0-2.5 Normal (applies [facility] Ratio] in Serum or to non-numeric Diagno stics Plasma results) Bilirubin.total 0.5 mg/dL 0.2-1.2 Normal (applies [facility] [Mass/volume] in Serum to non-numeric Di agnostics or Plasma results) Alkaline phosphatase 69 U/L 36-130 Normal (applies Que st [Enzymatic to non-numeric Diagnostics activity/volume] in results) Serum or Plasma Aspartate 31 U/L 10-40 Normal (applies [facility] aminotransferase to non-numeric Diagnost ics [Enzymatic results) activity/volume] in Serum or Plasma Alanine 31 U/L 9-46 Normal (applies [facility] aminotransferase to non-numeric Diagnost ics [Enzymatic results) activity/volume] in Serum or Plasma ID Date Data Source [id number] 02/14/2020 08:47:00 AM EDT [facility] FASTING: UNKNOWNReceived: 02/06/2020 at 01:38:00 QTE: [place], [address], Zafar Sanchez MD Received: 02/06/2020 at 01:38:00 QTE : [place], [address]Zafar MD Received: 02/06/2020 at 01:38:00 QTE : [facility] [place], [address], Zafar Sanchez MD Received: 02/06/2020 at 01:38:00 QTE : [place], [address], Zafar Sanchez MD Received: 02/06/2020 at 01:38:00 QTE : [place], [address], Zafar Sanchez MD Received: 02/06/2020 at 01:38:00 QTE : [facility], [place], [address], Zafar Sanchez MD Received: 02/06/2020 at 01:38:00 QTE : [facility], [place], [address], Zafar Sanchez MD Received: 02/06/2020 at 01:38:00 AMD : [facility], [address] [facility], [place], [place], , Juan Miguel Kebede M.D.,PhD Received: 02/06/2020 at 01:38:00 AMD : [facility], [address] [facility], [place], [place], , Juan Miguel Kebede M.D.,PhD Received: 02/06/2020 at 01:38:00 QTE : [facility], [place], [address], Zafar Sanchez MD Received: 02/06/2020 at 01:38:00 QTE : [facility], [place], [address], Zafar Sanchez MD Received: 02/06/2020 at 01:38:00 QTE : [facility], [place], [address], Zafar Sanchez MD Received: 02/06/2020 at 01:38:00 QTE : [facility], [place], [address], Zafar Sanchez MD Name Value Range Interpretation Description Data Sup porting Code Source(s) Document(s ) Testosterone [phone] [facility] [Mass/volume] ng/dL Diagnostics in Serum or Plasma For additional information, please refer tohttp://education.[employer]Wing.[employer]/ faq/[email or web address](This link is being provided for informational/educ ational purposes only.)This test was developed and its analytical performance characteristics have been determined by [facility] [place], [place]. It hasnot been cleared or approved by the U.S. Food and DrugAdministration. This assay has been validated pursuantto the CLIA regulations and is used for clinica lpurposes. ID Date Data Source [id number] 02/14/2020 08:47:00 AM EDT [facility] FASTING: UNKNOWNReceived: 02/06/2020 at 01:38:00 QTE: [facility], Moris Katey [place], [address], Zafar Sanhcez MD Received: 02/06/2020 at 01:38:00 QTE : [facility], [address], Zafar Sanchez MD Received: 02/06/2020 at 01:38:00 QTE : [facility] Moris Katey [place], [address], Zafar Sanchez MD Received: 02/06/2020 at 01:38:00 QTE : [facility], [address], Zafar Sanchez MD Received: 02/06/2020 at 01:38:00 QTE : [facility]ostics[facility] [place]idal [place], [address]Zafar MD Received: 02/06/2020 at 01:38:00 QTE : [facility] Moris Katey [place], [address]Zafar MD Received: 02/06/2020 at 01:38:00 QTE : [facility] Leija [place], [address]Zafar MD Received: 02/06/2020 at 01:38:00 AMD : [facility] [address], [place], [place], , Juan Miguel Kebede M.D.,PhD Received: 02/06/2020 at 01:38:00 AMD : [facility], [address], [place], [place], , Juan Miguel Kebede M.D.,PhD Received: 02/06/2020 at 01:38:00 QTE : [facility], Moris HardingKatey [place], [address], Zafar Sanhcez MD Received: 02/06/2020 at 01:38:00 QTE : [facility], [place], [address], Zafar Sanchez MD Received: 02/06/2020 at 01:38:00 QTE : [facility], [place], [address]Zafar MD Received: 02/06/2020 at 01:38:00 QTE : [facility], [place], [address], Zafar Sanchez MD Name Value Range Interpretation Description Data Sup porting Code Source(s) Document(s ) Testosterone 51.2 46.0-224 [facility] Free pg/mL .0 Diagnostics [Mass/volume] in Serum or Plasma The concentration of free testosterone i s derivedfrom a mathematical model using total testosteroneby LCMSMS, sex hormone binding globulin and albumin.This test was developed and its analytical performance characteristics have been determined by [facility] [place], [place]. It hasnot been cleared or approved by the U.S. Food and DrugAdministration. This assay has been validated pursuantto the CLIA regulations and is used for clinica lpurposes. ID Date Data Source [id number] 02/14/2020 08:47:00 AM EDT [facility] FASTING: UNKNOWNReceived: 02/06/2020 at 01:38:00 QTE: [facility], [place], [address]Zafar MD Received: 02/06/2020 at 01:38:00 QTE : [facility], [address], [place], [address], Zafar Sanchez MD Received: 02/06/2020 at 01:38:00 QTE : [facility], [address], [place], [address], Zafar Sanchez MD Received: 02/06/2020 at 01:38:00 QTE : [facility], [address], [place], [address], Zafar Sanchez MD Received: 02/06/2020 at 01:38:00 QTE : [facility], [address], [place], [address], Zafar Sanchez MD Received: 02/06/2020 at 01:38:00 QTE : [facility], [address], [place], [address], Zafra Sanchez MD Received: 02/06/2020 at 01:38:00 QTE : [facility], [address], [place], [address], Zafar Sanchez MD Received: 02/06/2020 at 01:38:00 AMD : [facility], [address] , [place], [place], , Juan Miguel Kebede M.D.,PhD Received: 02/06/2020 at 01:38:00 AMD : [facility], [address], [place], , Juan Miguel Kebede M.D.,PhD Received: 02/06/2020 at 01:38:00 QTE : [facility], [address], [place], [address], Zafar Sanchez MD Received: 02/06/2020 at 01:38:00 QTE : [facility], [address], [place], [address], Zafar Sanchez MD Received: 02/06/2020 at 01:38:00 QTE : [facility], Moris Garcias, [place], [address], Zafar Sanchez MD Received: 02/06/2020 at 01:38:00 QTE : [facility], Moris Garcias, [place], [address], Zafar Sanchez MD Name Value Range Interpretation Description Data Sup porting Code Source(s) Document(s ) Leukocytes 4.3 3.8-10. Normal (applies [facility] [#/volume] in Thousand 8 to non-numeric Diagnostics Blood by /uL results) Automated count Erythrocytes 5.25 4.20-5. Normal (applies [facility] [#/volume] in Million/ 80 to non-numeric Diagnostics Blood by uL results) Automated count Hemoglobin 15.0 13.2-17 Normal (applies [facility] [Mass/volume] in g/dL .1 to non-numeric Diagnost ics Blood results) Hematocrit 45.3 % 38.5-50 Normal (applies [facility] [Volume .0 to non-numeric Diagnostics Fraction] of results) Blood by Automated count Erythrocyte mean 86.3 fL 80.0-10 Normal (applies [facility] corpuscular 0.0 to non-numeric Diagnostics volume [Entitic results) volume] by Automated count Erythrocyte mean 28.6 pg 27.0-33 Normal (applies [facility] corpuscular .0 to non-numeric Diagnostics hemoglobin results) [Entitic mass] by Automated count Erythrocyte mean 33.1 32.0-36 Normal (applies [facility] corpuscular g/dL .0 to non-numeric Diagnostics hemoglobin results) concentration [Mass/volume] by Automated count Erythrocyte 14.5 % 11.0-15 Normal (applies [facility] distribution .0 to non-numeric Diagnostics width [Ratio] by results) Automated count Platelets 296 140-400 Normal (applies [facility] [#/volume] in Thousand to non-numeric Diagnostics Blood by /uL results) Automated count Platelet mean 11.1 fL 7.5-12. Normal (applies [facility] volume [Entitic 5 to non-numeric Diagnosti cs volume] in Blood results) by Candy ID Date Data Source [id number] 02/14/2020 08:47:00 AM EDT [facility] FASTING: UNKNOWNReceived: 02/06/2020 at 01:38:00 QTE: [facility], Mor[address] Hardingcobraden Garcias, [place], [address], Zafar Sanchez MD Received: 02/06/2020 at 01:38:00 QTE : [facility], [address], [place], [address], Zafar Sanchez MD Received: 02/06/2020 at 01:38:00 QTE : [facility], [address], [place], [address], Zafar Sanchez MD Received: 02/06/2020 at 01:38:00 QTE : [facility], [address], [place], [address], Zafar Sanchez MD Received: 02/06/2020 at 01:38:00 QTE : [facility], [address], [place], [address], Zafar Sanchez MD Received: 02/06/2020 at 01:38:00 QTE : [facility], [address], [place], [address], Zafar Sanchez MD Received: 02/06/2020 at 01:38:00 QTE : [facility], [address], [place], [address], Zafar Sanchez MD Received: 02/06/2020 at 01:38:00 AMD : [facility], [address] , [place], [place], , Juan Miguel Kebede M.D.,PhD Received: 02/06/2020 at 01:38:00 AMD : [facility], [address], [place], [place], , Juan Miguel Kebede M.D.,PhD Received: 02/06/2020 at 01:38:00 QTE : [facility], [place], [address]Zafar MD Received: 02/06/2020 at 01:38:00 QTE : [facility] [place], [address]Zafar MD Received: 02/06/2020 at 01:38:00 QTE : [facility] [place], [address]Zafar MD Received: 02/06/2020 at 01:38:00 QTE : [facility], [place], [address], Zafar Sanchez MD Name Value Range Interpretation Code Description Data Kayli rce(s) Supporting Document(s ) Service [facility] Specimen labels must include two forms o f patientID. Only one unique identifier was present on thesample(s). The testing you requested will beprocessed; however, going forward please providetwo identifiers as required by the College ofAmerican Pathologists (CAP). ID Date Data Source [id number] 02/14/2020 08:47:00 AM EDT [facility] FASTING: UNKNOWNReceived: 02/06/2020 at 01:38:00 QTE: [facility], [address]Zafar MD Received: 02/06/2020 at 01:38:00 QTE : [facility], [address]Zafar MD Received: 02/06/2020 at 01:38:00 QTE : [facility], [address]Zafar MD Received: 02/06/2020 at 01:38:00 QTE : [facility] [place], [address]Zafar MD Received: 02/06/2020 at 01:38:00 QTE : [facility] [place], [address]Zafar MD Received: 02/06/2020 at 01:38:00 QTE : [facility], [place], [address], Zafar Sanchez MD Received: 02/06/2020 at 01:38:00 QTE : [facility], Heladio [place], [address], Zafar Sanchez MD Received: 02/06/2020 at 01:38:00 AMD : [facility], [address] [facility], [place], [place], , Juan Miguel Kebede M.D.,PhD Received: 02/06/2020 at 01:38:00 AMD : [facility], [address] [address] , [place], [place], , Juan Miguel Kebede M.D.,PhD Received: 02/06/2020 at 01:38:00 QTE : [facility], [place], [address], Zafar Sanchez MD Received: 02/06/2020 at 01:38:00 QTE : [facility], [place], [address]Zafar MD Received: 02/06/2020 at 01:38:00 QTE : [facility], [place], [address], Zafar Sanchez MD Received: 02/06/2020 at 01:38:00 QTE : [facility], [address], Zafar Sanchez MD Name Value Range Interpretation Description Data Sup porting Code Source(s) Document(s ) Thyrotropin 0.64 0.40-4.5 Normal (applies [facility] [Units/volume] mIU/L 0 to non-numeric Diagnostic s in Serum or results) Plasma ID Date Data Source [id number] 02/14/2020 08:47:00 AM EDT [facility] FASTING: UNKNOWNReceived: 02/06/2020 at 01:38:00 QTE: [facility], [address], [place], [address], Zafar Sanchez MD Received: 02/06/2020 at 01:38:00 QTE : [facility], [address], [place], [address], Zafar Sanchez MD Received: 02/06/2020 at 01:38:00 QTE : [facility], [address], [place], [place], [address], Zafar Sanchez MD Received: 02/06/2020 at 01:38:00 QTE : [facility], [address], [place], [address], Zafar Sanchez MD Received: 02/06/2020 at 01:38:00 QTE : [facility], [address], [place], [address], Zafar Sanchez MD Received: 02/06/2020 at 01:38:00 QTE : [facility], [address], [place], [address], Zafar Sanchez MD Received: 02/06/2020 at 01:38:00 QTE : [facility], [address], [place], [address], Zafar Sanchez MD Received: 02/06/2020 at 01:38:00 AMD : [facility], [address] [facility] [address] , [place], [place], , Juan Miguel Kebede M.D.,PhD Received: 02/06/2020 at 01:38:00 AMD : [facility], [address], [place], [place], , Juan Miguel Kebede M.D.,PhD Received: 02/06/2020 at 01:38:00 QTE : [facility], [address], [place], [address], Zafar Sanchez MD Received: 02/06/2020 at 01:38:00 QTE : [facility] [place], [address], Zafar Sanchez MD Received: 02/06/2020 at 01:38:00 QTE : [facility], [place], [address], Zafar Sanchez MD Received: 02/06/2020 at 01:38:00 QTE : [facility], [place], [address], Zafar Sanchez MD Name Value Range Interpretation Description Data Source(s ) Supporting Code Document(s ) Hemoglobin 5.7 % of <5.7 Above high normal [facility] A1c/Hemoglobin total Diagnostics .total in Hgb Blood For someone without known diabetes, a he andagmgaP0h value between 5.7% and 6.4% is consistent withprediabetes and should be confirmed with afollow-up test.For someone with known diabetes, a value <7%indicate s that their diabetes is well controlled. A8ineatycy should be individualized base d on duration ofdiabetes, age, comorbid conditions, and otherconsiderations.This assay result is consistent with an increased riskof diabetes.Currently, no consensus exists regarding use ofhemoglobin A1c for diagnosis of diabetes for children. Procedure
[2020-02-22] MEDS ORDERED: KETOROLAC TROMETHAMINE 60 MG/2 ML VIAL IM ONE (02:50)
--- NOTE | 2020-02-22 21:40 | EKG ---
Test Reason : Blood Pressure : / mmHG Vent. Rate : 080 BPM Atrial Rate : 080 BPM P-R Int : 194 ms QRS Dur : 090 ms QT Int : 352 ms P-R-T Axes : 052 005 010 degrees QTc Int : 405 ms NORMAL SINUS RHYTHM NORMAL ECG WHEN COMPARED WITH ECG OF 05-MAY-2018 22:05, NO SIGNIFICANT CHANGE WAS FOUND Confirmed by ARLETTE RENNER MD ([id number]) on 02/22/2020 9:39:43 PM Referred By: MD [facility] Confirmed By:ARLETTE RENNER MD
== END 2020-02-22 03:03 | disposition home or self-care (01) ==
LOC: FER 02:15
PROC: 3E0233Z Introduction of Anti-inflammatory into Muscle, Percutaneous Approach (ICD-10-PCS; principal; 2020-02-22)
DX: S29.011A Strain of muscle and tendon of front wall of thorax, initial encounter (principal)
CPT/HCPCS: 93005; 99284-25

== ENCOUNTER 2023-08-11 21:26 | Emergency (ER) | payer OTHER ==
[2023-08-11 21:33] VITALS: BP 149/98; PULSE 82; RESP 18; TEMP 98.5; BMI 39.4
[2023-08-11] MEDS ORDERED: FLUORESCEIN NA 1 EA STRIP ONE (21:44)
[2023-08-11] MEDS ORDERED: TETRACAINE 0.5% OPHTH SOLN 2 ML BOTTLE ONE (21:44)
[2023-08-11] MEDS ORDERED: CIPROFLOXACIN HCL 0.3% OPHTH 2.5ML BOTTLE ONE (21:46)
[2023-08-11] MEDS: CIPROFLOXACIN 0.3% EYE DROPS 5 ML BOTTLE OS STA (21:50)
[2023-08-11] MEDS ORDERED: CIPROFLOXACIN 0.3% EYE DROPS 5 ML BOTTLE OS SCH (22:00)
== END 2023-08-11 21:56 | disposition home or self-care (01) ==
LOC: FER 21:26
DX: H57.89 Other specified disorders of eye and adnexa (principal); H10.32 Unspecified acute conjunctivitis, left eye
CPT/HCPCS: 99283-25